=== PATIENT | male | born 1995 | race Caucasian/White ===

== ENCOUNTER 2019-03-20 06:50 | Emergency (ER) | payer SELFPAY ==
[~2019-03-20] VITALS: Ht 172.7 cm; Wt 64.0 kg
[2019-03-20] MEDS ORDERED: MORPHINE SULFATE 4 MG/ML CPJ (NOT FOR IM USE) IV STA (08:43)
[2019-03-20] MEDS ORDERED: VISCOUS LIDOCAINE 2% 15 ML UDC PO ONE (08:45)
[2019-03-20] MEDS ORDERED: MAGNESIUM/ALUMINUM HYDROXIDE/SIMETHICONE 30ML UDC PO ONE (08:45)
[2019-03-20] MEDS ORDERED: DICYCLOMINE 10 MG/5 ML ORAL SYR PO ONE ×2 (08:45→09:22)
[2019-03-20 09:15] LABS: BASOPHILS % 0.3 % (0.0-2.0); EOSINOPHILS % 0.8 % (0.0-5.0); HEMATOCRIT. 48.4 % (42.0-52.0); HEMOGLOBIN. 16.5 g/dL (14.0-18.0); LYMPHOCYTES % 11.1 % (20.0-50.0); MEAN CORPUSCULAR HEMOGLOBIN 29.9 pg (28.0-32.0); MEAN CORPUSCULAR VOLUME 87.6 fL (80.0-94.0); MEAN PLATELET VOLUME 7.7 fl (7.4-10.4); MONOCYTES % 5.2 % (2.0-8.0); NEUTROPHILS % 82.6 % (40.0-76.0); PLATELET 271 x1000/uL (130-400); RED BLOOD CELL COUNT 5.52 mill/uL (4.7-6.1); RED CELL DISTRIBUTION WIDTH 12.5 % (11.6-14.6)
[2019-03-20 09:21] LABS: CHLORIDE 102 mEq/L (98-107)
[2019-03-20 13:57] VITALS: BP 107/55
== END 2019-03-20 14:09 | disposition home or self-care (01) ==
LOC: ER 06:50
DX: R07.89 Other chest pain (principal); F41.9 Anxiety disorder, unspecified; F12.10 Cannabis abuse, uncomplicated; Z87.442 Personal history of urinary calculi
CPT/HCPCS: 36415; 71045; 80053; 83880; 84484; 85025; 93005; 96374; 99284; J2270

== ENCOUNTER 2021-06-24 10:28 | Emergency (ER) | payer SELFPAY ==
[~2021-06-24] VITALS: Ht 172.7 cm; Wt 91.0 kg
[2021-06-24 10:42] VITALS: BP 123/79
[2021-06-24] MEDS ORDERED: ONDANSETRON HCL 4MG/2ML INJ IV STA (11:28)
[2021-06-24] MEDS ORDERED: SODIUM CHLORIDE 0.9% 1,000 ML IV ONE (11:30)
[2021-06-24 12:11] LABS: HEMATOCRIT. 41.8 % (42.0-52.0); HEMOGLOBIN. 12.8 g/dL (14.0-18.0); MEAN CORPUSCULAR HEMOGLOBIN 20.3 pg (28.0-32.0); MEAN CORPUSCULAR VOLUME 66.3 fL (80.0-94.0); MEAN PLATELET VOLUME 8.4 fl (7.4-10.4); PLATELET 356 x1000/uL (130-400); RED BLOOD CELL COUNT 6.31 mill/uL (4.7-6.1); RED CELL DISTRIBUTION WIDTH 17.4 % (11.6-14.6)
[2021-06-24 12:14] LABS: CHLORIDE 107 mEq/L (98-107)
[2021-06-24 13:02] LABS: ATYPICAL LYMPHOCYTES 1; PLATELET ESTIMATE NORMAL
[2021-06-24] MEDS ORDERED: LOPE2TAB26 MT (16:48)
[2021-06-24] MEDS ORDERED: ONDA4TAB11 PO (16:48)
== END 2021-06-24 16:39 | disposition left against medical advice (07) ==
LOC: ER 11:28
DX: R19.7 Diarrhea, unspecified (principal); F12.10 Cannabis abuse, uncomplicated; Z98.890 Other specified postprocedural states; Z90.49 Acquired absence of other specified parts of digestive tract
CPT/HCPCS: 36415; 80053; 83690; 85025; 93005; 99284; J7030